=== PATIENT | male | born 1970 | race Caucasian/White ===

== ENCOUNTER 2017-08-06 20:48 | Inpatient (IN) | payer BC, OTHER ==
[~2017-08-06] VITALS: Ht 172.7 cm; Wt 87.6 kg
--- NOTE | 2017-08-06 20:58 | NUR ---
PT SENT TO LOBBY TO WAIT FOR AVAILABLE BED. ALERT AND ORIENTED AND NO DISTRESS NOTED
--- NOTE | 2017-08-06 22:37 | NUR ---
REC'D A 46/M IN RM 2A WITH C/O LLQ PAIN SINCE 8AM TODAY. HX OF DIVERTICULITIS X 5 YEARS AGO. PT REPORTS N/V AND LIN. HEADACHE RELIEVED BY MOTRIN. PT AAOX4, RESP E/U. DAUGHTER AT BEDSIDE. CALL LIGHT WITHIN REACH, WILL CONTINUE TO MONITOR.
[2017-08-07] VITALS (7 sets, daily range): BP systolic 110–149; BP diastolic 74–99
[2017-08-07 00:14] LABS: BASOPHIL % 1.4 % (0-2); PLATELET COUNT 174 x10^3mcL (130-400); RED CELL DISTRIBUTION WIDTH 13.8 % (11.5-14.5)
--- NOTE | 2017-08-07 00:20 | NUR ---
PT AMBULATED TO THE RESTROOM WITH SPECIMEN CONTAINER.
[2017-08-07 00:28] LABS: CALCIUM 8.6 mg/dL (8.5-10.1); CARBON DIOXIDE 25.9 mmol/L (21-32); CHLORIDE SERUM 104 mmol/L (98-107); CREATININE SERUM 0.9 mg/dL (0.7-1.3); GFR1 > 60 mL/min; GLUCOSE SERUM 98 mg/dL (74-106); POTASSIUM SERUM 3.8 mmol/L (3.5-5.1); SODIUM SERUM 141 mmol/L (136-145)
[2017-08-07 00:33] LABS: ALBUMIN 3.6 g/dL (3.4-5.0); ALKALINE PHOSPHATASE 76 U/L (46-116); ALT/SGPT 78 U/L (16-63); AST/SGOT 23 U/L (15-37); BILIRUBIN TOTAL 0.3 mg/dL (0.20-1.00); TOTAL PROTEIN, SERUM 7.1 g/dL (6.4-8.2)
[2017-08-07 00:33] LABS: microscopic required? NO
--- NOTE | 2017-08-07 00:33 | NUR ---
MEDICATED PT FOR PAIN AND INITATED BOLUS, AND FLAGYL. PLEASE SEE EMAR.
[2017-08-07 01:09] LABS: UA SPECIFIC GRAVITY >=1.030 (1.005-1.035); urine erythrocyte NEGATIVE (NEGATIVE)
--- NOTE | 2017-08-07 01:10 | NUR ---
PT REPORTS PAIN INCREASED 04/12. DR PRASAD MADE AWARE.
--- NOTE | 2017-08-07 01:35 | NUR ---
BOLUS COMPLETED. HOWEVER, PT REPORTS NO PAIN RELIEF FROM MEDICATION.
--- NOTE | 2017-08-07 01:45 | NUR ---
PT RETURNED TO FROM CT WITHOUT INCIDENT.
--- NOTE | 2017-08-07 02:01 | NUR ---
MEDICATED PT FOR PAIN. PLEASE SEE EMAR.
--- NOTE | 2017-08-07 02:55 | NUR ---
REPORT GIVEN TO RAVI ANDERSEN TO ASSUME CARE OF THE PT.
--- NOTE | 2017-08-07 03:22 | NUR ---
RECIEVED PT FROM ER VIA ONESIMO. AOX4. TELE #24, NSR. LUNGS CLEAR. PULSES PALPABLE, NO EDEMA. BOWEL SOUNDS ACTIVE. C/O 7/10 LLQ PAIN, WILL MEDICATE PER EMAR. IV TO RIGHT AC INTACT. SKIN INTACT. BED IN LOW POSITION, CALL LIGHT IN REACH. INSTRUCTED TO CALL FOR ASSISTANCE. DR. GAO AT BEDSIDE.
[2017-08-07 03:52] LABS: AMPHETAMINE QUAL UR NONE DETECTED (NEG <=1000)
[2017-08-07 04:29] LABS: AMYLASE 56 U/L (25-115); LIPASE 292 IU/L (73-393); PHOSPHOROUS 3.7 mg/dL (2.5-4.9)
[2017-08-07 04:33] LABS: CHOLESTEROL 257 mg/dL (<200); CHOLESTEROL/HDL RATIO 8.6; HDL CHOLESTEROL 30 mg/dL (40-60); TRIGLYCERIDES 446 mg/dL (<150)
--- NOTE | 2017-08-07 06:55 | NUR ---
NO ACUTE CHANGES DURING SHIFT. WILL ENDORSE TO ONCOMING RN.
--- NOTE | 2017-08-07 08:00 | NUR ---
RECEIVED PT IN BED ALERT AND ORIENTED X4. TELE #24, NSR. REPORTS ACHING PAIN TO LLQ RATED 5/10 AND HEADACHE, TYLENOL PO GIVEN FOR PAIN. PT DENIES N/V/D AT THIS TIME. AMBULATORY. NO SOB. INSTRUCTED TO USE CALL LIGHT WHEN IN NEED OF ANY ASSISTANCE.
--- NOTE | 2017-08-07 11:30 | NUR ---
PT COMPLAINING OF PAIN TO LLQ RATED 7/10. NORCO PO GIVEN.
--- NOTE | 2017-08-07 16:30 | NUR ---
PT COMPLAINING OF PAIN TO LLQ RATED 8/10. ALSO REPORTS ANXIETY. NORCO AND ATIVAN PO GIVEN.
--- NOTE | 2017-08-07 18:04 | NUR ---
PT LYING IN BED, STATES PAIN IS TOLERABLE AT THIS TIME RATED 3/10.
--- NOTE | 2017-08-07 19:23 | NUR ---
AOX4. TELE #24, NSR. LUNGS CLEAR. PULSES PALPABLE, NO EDEMA. BOWEL SOUNDS ACTIVE. C/O 7/10 LLQ PAIN, WILL MEDICATE PER EMAR. IV TO RIGHT AC INTACT. SKIN INTACT. BED IN LOW POSITION, CALL LIGHT IN REACH. INSTRUCTED TO CALL FOR ASSISTANCE. FAMILY AT BEDSIDE.
--- NOTE | 2017-08-08 01:40 | NUR ---
RESTING WITH EYES CLOSED. AWAKENS EASILY TO VERBAL STIMULI. BREATHING EVEN AND UNLABORED. NO ACUTE DISTRESS NOTED. WILL CONTINUE TO MONITOR.
[2017-08-08 05:47] VITALS: BP 116/78
--- NOTE | 2017-08-08 06:06 | NUR ---
NO ACUTE CHANGES DURING SHIFT. WILL ENDORSE TO ONCOMING RN.
--- NOTE | 2017-08-08 07:08 | NUR ---
RECEIVED Pt. AAOX4 RESPIRATIONS EVEN AND UNLABORED, DENIES ANY PAIN/DISCOMFORT AT THIST AVERY. NO DISTRESS NOTED. TELE IN PLACE HR 77. IVF RUNNING TO IV RIGHT AC PATENT AND INTACT. DENIES ABD PAIN/N/V/D. WILL CONTINUE TO MONITOR. CALL LIGHT IN REACH, BED LOW/LOCKED.
[2017-08-08 07:13] LABS: BASOPHIL % 0.3 % (0-2); PLATELET COUNT 144 x10^3mcL (130-400); RED CELL DISTRIBUTION WIDTH 13.8 % (11.5-14.5)
[2017-08-08 07:17] LABS: CALCIUM 8.5 mg/dL (8.5-10.1); CARBON DIOXIDE 29.6 mmol/L (21-32); CHLORIDE SERUM 106 mmol/L (98-107); CREATININE SERUM 0.9 mg/dL (0.7-1.3); GFR1 > 60 mL/min; GLUCOSE SERUM 96 mg/dL (74-106); POTASSIUM SERUM 4.2 mmol/L (3.5-5.1); SODIUM SERUM 141 mmol/L (136-145)
[2017-08-08 08:54] VITALS: BP 128/84
--- NOTE | 2017-08-08 09:40 | NUR ---
MADE ROUNDS WITH DR. POST AND MEDICINE TEAM, Pt. POSSIBLE DISCHARGE TODAY AND AGREED WITH PLAN OF CARE.
--- NOTE | 2017-08-08 10:50 | NUR ---
Pt. C/O IV RIGHT AC LEAKING AND REMOVED WITH CATH INTACT. Pt. REFUSED NEW IV LINE TO BE STARTED AT THIS TIME DUE TO Pt. IS GOING TO BE DISCHARGED TODAY.
--- NOTE | 2017-08-08 11:10 | NUR ---
Pt. POSITIVE FOR MRSA IN NARES DR. HUTSON NOTIFIED.
[2017-08-08] MEDS ORDERED: TYL325 PO (11:47)
[2017-08-08] MEDS ORDERED: LAC PO (11:47)
[2017-08-08] MEDS ORDERED: FLA500 PO (11:57)
[2017-08-08] MEDS ORDERED: LEVOFLOXACIN500 M1 PO (11:57)
[2017-08-08] MEDS ORDERED: APAP/HYDROCODON1 T13 PO (13:41)
[2017-08-08] MEDS ORDERED: HIBICLENS118 ML TOP (13:41)
[2017-08-08] MEDS ORDERED: BACO TOP (13:41)
--- NOTE | 2017-08-08 14:30 | NUR ---
Pt. AAOX4, RESPIRATIONS EVEN AND UNLABORED RA. DENIES PAIN/DISCOMFORT AT THIS TIME. NO DISTRESS NOTED, ALL RX AND DISCHARGE INSTRUCTIONS EXPLAINED TO Pt. AND VERBALIZED UNDERSTANDING. Pt. INSTRUCTED TO FOLLOW UP WITH PCP. Pt. DENIES ABD PAIN/N/V/D AND Pt. LEFT WITH ALL BELONGINGS.
== END 2017-08-08 14:30 | disposition home or self-care (01) | DRG 872 ==
LOC: ED 20:48 → DU 08-07 02:38
PROVIDERS: Emergency Medicine; Student in an Organized Health Care Education/Training Program; ADMIT Family Medicine Sports Medicine
DX: A41.9 Sepsis, unspecified organism (principal); K57.92 Diverticulitis of intestine, part unspecified, without perforation or abscess without bleeding; I10 Essential (primary) hypertension; E78.00 Pure hypercholesterolemia, unspecified; F17.210 Nicotine dependence, cigarettes, uncomplicated; Z68.29 Body mass index [BMI] 29.0-29.9, adult; E66.01 Morbid (severe) obesity due to excess calories; J43.9 Emphysema, unspecified; R91.8 Other nonspecific abnormal finding of lung field
CPT/HCPCS: 83880; 90658; J1885; J1956; J2270; J2405; J3490; J7030; J7620; Q9967

== ENCOUNTER 2017-08-09 21:21 | Emergency (ER) | payer BC, OTHER ==
[~2017-08-09 21:21] MED LIST: APAP/HYDROCODON1 T13 PO; BACO TOP; FLA500 PO; HIBICLENS118 ML TOP; LAC PO; LEVOFLOXACIN500 M1 PO; TYL325 PO
[2017-08-09 23:39] VITALS: BP 131/69
== END 2017-08-09 23:53 | disposition home or self-care (01) ==
LOC: ED 21:21
DX: J98.01 Acute bronchospasm (principal); K57.92 Diverticulitis of intestine, part unspecified, without perforation or abscess without bleeding
CPT/HCPCS: J7613

== ENCOUNTER 2017-12-17 19:52 | Inpatient (IN) | payer BC, OTHER ==
[~2017-12-17] VITALS: Ht 170.2 cm; Wt 78.5 kg
[2017-12-17 21:37] LABS: BASOPHIL % 0.5 % (0-2); PLATELET COUNT 184 x10^3mcL (130-400); RED CELL DISTRIBUTION WIDTH 12.9 % (11.5-14.5)
[2017-12-17 22:00] LABS: CALCIUM 8.5 mg/dL (8.5-10.1); CARBON DIOXIDE 24.2 mmol/L (21-32); CHLORIDE SERUM 105 mmol/L (98-107); GFR1 > 60 mL/min; GLUCOSE SERUM 133 mg/dL (74-106); POTASSIUM SERUM 3.3 mmol/L (3.5-5.1); SODIUM SERUM 141 mmol/L (136-145)
[2017-12-17 22:05] LABS: ALBUMIN 3.7 g/dL (3.4-5.0); ALKALINE PHOSPHATASE 56 U/L (46-116); ALT/SGPT 104 U/L (16-63); AST/SGOT 32 U/L (15-37); BILIRUBIN TOTAL 0.3 mg/dL (0.20-1.00); TOTAL PROTEIN, SERUM 7.5 g/dL (6.4-8.2)
[2017-12-17 23:28] VITALS: BP 140/93
[2017-12-17 23:29] LABS: FREE T4 1.08 ng/dL (0.76-1.46); T4(THYROXINE) 8.5 ug/dL (4.7-13.3)
[2017-12-17 23:50] LABS: MAGNESIUM 1.9 mg/dL (1.8-2.4); PHOSPHOROUS 2.9 mg/dL (2.5-4.9)
[2017-12-17 23:52] LABS: CHOLESTEROL/HDL RATIO 6.4
[2017-12-18] MEDS ORDERED: LORAZEPAM0.5 MG PO (00:31)
[2017-12-18] MEDS ORDERED: FENOFIBRATE54 M1 PO (00:32)
[2017-12-18] MEDS ORDERED: BUPROPION HCL150 MG PO (00:32)
[2017-12-18 01:42] LABS: T3 TOTAL 1.19 ng/mL
[2017-12-18 04:51] LABS: microscopic required? NO
[2017-12-18 05:02] LABS: UA SPECIFIC GRAVITY 1.015 (1.005-1.035); urine erythrocyte NEGATIVE (NEGATIVE)
[2017-12-18 05:13] LABS: AMPHETAMINE QUAL UR NONE DETECTED (NEG <=1000)
[2017-12-18 06:03] VITALS: BP 112/72
[2017-12-18 06:42] LABS: BASOPHIL % 0.5 % (0-2); PLATELET COUNT 175 x10^3mcL (130-400); RED CELL DISTRIBUTION WIDTH 12.8 % (11.5-14.5)
[2017-12-18 06:49] LABS: CALCIUM 8.7 mg/dL (8.5-10.1); CARBON DIOXIDE 24.9 mmol/L (21-32); CHLORIDE SERUM 106 mmol/L (98-107); CREATININE SERUM 0.9 mg/dL (0.7-1.3); GFR1 > 60 mL/min; GLUCOSE SERUM 95 mg/dL (74-106); POTASSIUM SERUM 3.8 mmol/L (3.5-5.1); SODIUM SERUM 140 mmol/L (136-145)
[2017-12-18 08:41] VITALS: BP 119/86
[2017-12-18 08:50] VITALS: Ht 170.2 cm; Wt 78.5 kg
[2017-12-18 12:20] VITALS: BP 129/87
[2017-12-18 16:50] VITALS: BP 110/70
[2017-12-18 21:07] VITALS: BP 133/85
[2017-12-19 05:35] VITALS: BP 113/67
[2017-12-19 07:23] LABS: BASOPHIL % 0.4 % (0-2); PLATELET COUNT 175 x10^3mcL (130-400); RED CELL DISTRIBUTION WIDTH 12.7 % (11.5-14.5)
[2017-12-19 07:48] LABS: CALCIUM 9.2 mg/dL (8.5-10.1); CARBON DIOXIDE 27.4 mmol/L (21-32); CHLORIDE SERUM 110 mmol/L (98-107); CREATININE SERUM 0.9 mg/dL (0.7-1.3); GFR1 > 60 mL/min; GLUCOSE SERUM 93 mg/dL (74-106); POTASSIUM SERUM 4.4 mmol/L (3.5-5.1); SODIUM SERUM 146 mmol/L (136-145)
[2017-12-19 09:16] VITALS: BP 108/69
[2017-12-19] MEDS ORDERED: FIORICET1 CAP PO (12:44)
[2017-12-19] MEDS ORDERED: BACTROBAN21 (12:46)
[2017-12-19] MEDS ORDERED: HIB480 TP (12:47)
[2017-12-19 13:02] VITALS: BP 108/69
[2017-12-19 13:07] VITALS: BP 108/69
== END 2017-12-19 13:51 | disposition home or self-care (01) | DRG 393 ==
LOC: ED 19:52 → DU 22:26
PROVIDERS: Emergency Medicine; Internal Medicine; Student in an Organized Health Care Education/Training Program
PROC: 0W3P8ZZ Control Bleeding in Gastrointestinal Tract, Via Natural or Artificial Opening Endoscopic (ICD-10-PCS; 2017-12-18)
PROC: 0DBN8ZX Excision of Sigmoid Colon, Via Natural or Artificial Opening Endoscopic, Diagnostic (ICD-10-PCS; principal; 2017-12-18 11:00)
PROC: 0DBP8ZZ Excision of Rectum, Via Natural or Artificial Opening Endoscopic (ICD-10-PCS; 2017-12-18 11:00)
DX: K63.5 Polyp of colon (principal); K57.31 Diverticulosis of large intestine without perforation or abscess with bleeding; E78.00 Pure hypercholesterolemia, unspecified; F17.290 Nicotine dependence, other tobacco product, uncomplicated; E78.2 Mixed hyperlipidemia; E87.6 Hypokalemia; K57.30 Diverticulosis of large intestine without perforation or abscess without bleeding; Z80.9 Family history of malignant neoplasm, unspecified; Z82.49 Family history of ischemic heart disease and other diseases of the circulatory system
CPT/HCPCS: 45330; 83880; 84439; J1200; J1610; J2250; J2310; J3010; J3490

== ENCOUNTER 2018-07-25 15:45 | Inpatient (IN) | payer BC ==
[~2018-07-25] VITALS: Ht 172.7 cm; Wt 84.1 kg
[~2018-07-25 15:45] MED LIST changes: +BACTROBAN21; +BUPROPION HCL150 MG PO; +FENOFIBRATE54 M1 PO; +FIORICET1 CAP PO; +HIB480 TP; +LORAZEPAM0.5 MG PO
[2018-07-25 16:35] LABS: BASOPHIL % 0.9 % (0-2); PLATELET COUNT 224 x10^3mcL (130-400); RED CELL DISTRIBUTION WIDTH 13.5 % (11.5-14.5)
[2018-07-25 16:39] LABS: CALCIUM 9.1 mg/dL (8.5-10.1); CARBON DIOXIDE 25.9 mmol/L (21-32); CHLORIDE SERUM 105 mmol/L (98-107); CREATININE SERUM 1.1 mg/dL (0.7-1.3); GFR1 > 60 mL/min; GLUCOSE SERUM 92 mg/dL (74-106); POTASSIUM SERUM 3.6 mmol/L (3.5-5.1); SODIUM SERUM 139 mmol/L (136-145)
[2018-07-25 16:43] LABS: ALBUMIN 3.7 g/dL (3.4-5.0); ALKALINE PHOSPHATASE 61 U/L (46-116); ALT/SGPT 129 U/L (16-63); AMYLASE 73 U/L (25-115); AST/SGOT 48 U/L (15-37); BILIRUBIN TOTAL 0.2 mg/dL (0.20-1.00); LIPASE 223 IU/L (73-393); TOTAL PROTEIN, SERUM 7.2 g/dL (6.4-8.2)
[2018-07-25] MEDS ORDERED: WELLBUTRIN XL300 M1 PO (18:45)
[2018-07-25 19:25] VITALS: BP 138/97
[2018-07-25 21:01] VITALS: BP 139/97
[2018-07-26 05:09] VITALS: BP 131/86
[2018-07-26 06:55] LABS: BASOPHIL % 0.2 % (0-2); PLATELET COUNT 199 x10^3mcL (130-400); RED CELL DISTRIBUTION WIDTH 13.3 % (11.5-14.5)
[2018-07-26 07:08] LABS: CALCIUM 8.5 mg/dL (8.5-10.1); CARBON DIOXIDE 25.7 mmol/L (21-32); CHLORIDE SERUM 108 mmol/L (98-107); CREATININE SERUM 0.9 mg/dL (0.7-1.3); GFR1 > 60 mL/min; GLUCOSE SERUM 99 mg/dL (74-106); MAGNESIUM 1.8 mg/dL (1.8-2.4); POTASSIUM SERUM 3.9 mmol/L (3.5-5.1); SODIUM SERUM 140 mmol/L (136-145)
[2018-07-26 09:12] VITALS: BP 148/97
[2018-07-26 15:19] VITALS: Ht 172.7 cm; Wt 84.1 kg
[2018-07-26 17:02] VITALS: BP 124/89
[2018-07-26 19:12] VITALS: BP 124/89
== END 2018-07-26 20:04 | disposition home or self-care (01) | DRG 392 ==
LOC: ED 15:45 → MU 18:31
PROVIDERS: Emergency Medicine; Internal Medicine Pulmonary Disease
DX: K57.32 Diverticulitis of large intestine without perforation or abscess without bleeding (principal); I10 Essential (primary) hypertension; E66.9 Obesity, unspecified; E78.5 Hyperlipidemia, unspecified; F43.10 Post-traumatic stress disorder, unspecified; F41.9 Anxiety disorder, unspecified; F32.9 Major depressive disorder, single episode, unspecified
CPT/HCPCS: J0295; J1644; J2543; J3010; J7030

== ENCOUNTER 2019-01-02 19:53 | Inpatient (IN) | payer BC ==
[~2019-01-02] VITALS: Ht 170.2 cm; Wt 83.0 kg
[~2019-01-02 19:53] MED LIST changes: +WELLBUTRIN XL300 M1 PO
[2019-01-02 20:12] LABS: BASOPHIL % 1.1 % (0-2); PLATELET COUNT 278 x10^3mcL (130-400); RED CELL DISTRIBUTION WIDTH 13.6 % (11.5-14.5)
[2019-01-02 20:19] LABS: CALCIUM 8.9 mg/dL (8.5-10.1); CARBON DIOXIDE 25.1 mmol/L (21-32); CHLORIDE SERUM 102 mmol/L (98-107); CREATININE SERUM 1.1 mg/dL (0.7-1.3); GFR1 > 60 mL/min; GLUCOSE SERUM 109 mg/dL (74-106); POTASSIUM SERUM 3.7 mmol/L (3.5-5.1); SODIUM SERUM 138 mmol/L (136-145)
[2019-01-02 20:24] LABS: ALBUMIN 3.9 g/dL (3.4-5.0); ALKALINE PHOSPHATASE 67 U/L (46-116); ALT/SGPT 83 U/L (16-63); AMYLASE 84 U/L (25-115); AST/SGOT 30 U/L (15-37); BILIRUBIN TOTAL 0.28 mg/dL (0.20-1.00); LIPASE 282 IU/L (73-393); TOTAL PROTEIN, SERUM 7.6 g/dL (6.4-8.2)
[2019-01-03] VITALS (7 sets, daily range): BP systolic 102–131; BP diastolic 65–88
[2019-01-03 06:23] LABS: BASOPHIL % 0.3 % (0-2); PLATELET COUNT 219 x10^3mcL (130-400); RED CELL DISTRIBUTION WIDTH 13.6 % (11.5-14.5)
[2019-01-03 06:33] LABS: CALCIUM 8.3 mg/dL (8.5-10.1); CARBON DIOXIDE 25.3 mmol/L (21-32); CHLORIDE SERUM 104 mmol/L (98-107); CREATININE SERUM 0.9 mg/dL (0.7-1.3); GFR1 > 60 mL/min; GLUCOSE SERUM 121 mg/dL (74-106); POTASSIUM SERUM 3.6 mmol/L (3.5-5.1); SODIUM SERUM 137 mmol/L (136-145)
[2019-01-04 05:59] VITALS: BP 113/67
[2019-01-04 08:30] LABS: BASOPHIL % 0.3 % (0-2); PLATELET COUNT 177 x10^3mcL (130-400); RED CELL DISTRIBUTION WIDTH 13.8 % (11.5-14.5)
[2019-01-04 08:57] VITALS: BP 102/60
[2019-01-04 12:19] VITALS: BP 122/83
[2019-01-04 17:03] VITALS: BP 117/87
[2019-01-04 20:45] VITALS: BP 131/92
[2019-01-05 05:42] VITALS: BP 124/82
[2019-01-05 06:31] LABS: CALCIUM 8.8 mg/dL (8.5-10.1); CARBON DIOXIDE 26.4 mmol/L (21-32); CHLORIDE SERUM 102 mmol/L (98-107); CREATININE SERUM 0.9 mg/dL (0.7-1.3); GFR1 > 60 mL/min; GLUCOSE SERUM 93 mg/dL (74-106); POTASSIUM SERUM 3.5 mmol/L (3.5-5.1); SODIUM SERUM 138 mmol/L (136-145)
[2019-01-05 06:34] LABS: BASOPHIL % 0.3 % (0-2); PLATELET COUNT 179 x10^3mcL (130-400); RED CELL DISTRIBUTION WIDTH 13.4 % (11.5-14.5)
[2019-01-05 08:56] VITALS: Ht 170.2 cm; Wt 83.0 kg
[2019-01-05 09:55] VITALS: BP 119/84
[2019-01-05 13:01] VITALS: BP 120/84
[2019-01-05] MEDS ORDERED: CIPRO500 MG PO (17:21)
[2019-01-05] MEDS ORDERED: FLA500 PO (17:23)
[2019-01-05 17:31] VITALS: BP 120/84
[2019-01-05 18:06] VITALS: BP 119/84
== END 2019-01-05 18:18 | disposition home or self-care (01) | DRG 392 ==
LOC: ED 19:53 → DU 22:06 → MU 01-05 07:30
PROVIDERS: Emergency Medicine; Internal Medicine; ADMIT Internal Medicine Pulmonary Disease
DX: K57.20 Diverticulitis of large intestine with perforation and abscess without bleeding (principal); E11.9 Type 2 diabetes mellitus without complications; G40.909 Epilepsy, unspecified, not intractable, without status epilepticus; J45.909 Unspecified asthma, uncomplicated; R91.1 Solitary pulmonary nodule; I10 Essential (primary) hypertension; E78.5 Hyperlipidemia, unspecified; F41.9 Anxiety disorder, unspecified; Z79.84 Long term (current) use of oral hypoglycemic drugs; Z68.28 Body mass index [BMI] 28.0-28.9, adult; Z90.49 Acquired absence of other specified parts of digestive tract
CPT/HCPCS: J0744; J1170; J1200; J1650; J1885; J1956; J2270; J2405; J2765; J3010; J3490; J7030

== ENCOUNTER 2020-11-07 22:46 | Emergency (ER) | payer BC ==
[~2020-11-07] VITALS: Ht 175.3 cm; Wt 87.1 kg
[~2020-11-07 22:46] MED LIST changes: +CIPRO500 MG PO
[2020-11-07 22:51] VITALS: BP 165/102; Ht 175.3 cm; Wt 87.1 kg
== END 2020-11-07 23:53 | disposition left against medical advice (07) ==
LOC: ED 22:46
DX: R07.89 Other chest pain (principal); I10 Essential (primary) hypertension; E78.00 Pure hypercholesterolemia, unspecified